=== PATIENT | male | born 1985 | race African-American/Black ===

== ENCOUNTER 2022-07-14 09:38 | Emergency (ER) | payer MEDICAID, OTHER ==
[~2022-07-14] VITALS: Ht 188 cm; Wt 97.3 kg
[2022-07-14] MEDS ORDERED: SODIUM CHLORIDE 0.9% 1,000 ML IV ONE (10:45)
[2022-07-14 11:04] LABS: CLARITY URINE CLOUDY (CLEAR); COLOR URINE DARK YELLOW (YELLOW); KETONES URINE 3+ (NEGATIVE); LEUKOCYTE ESTERASE URINE TRACE (NEGATIVE); NITRITE URINE NEGATIVE (NEGATIVE); OCCULT BLOOD URINE NEGATIVE (NEGATIVE); PH URINE 5.5 (4.5-8.0); PROTEIN URINE 2+ (NEGATIVE); SPECIFIC GRAVITY URINE 1.034 (1.005-1.030)
[2022-07-14 11:54] LABS: BASOPHILS % 0.5 % (0.0-2.0); EOSINOPHILS % 0.2 % (0.0-5.0); HEMATOCRIT. 40.2 % (42.0-52.0); HEMOGLOBIN. 13.3 g/dL (14.0-18.0); MEAN CORPUSCULAR HEMOGLOBIN 27.7 pg (28.0-32.0); MEAN CORPUSCULAR VOLUME 83.7 fL (80.0-94.0); MONOCYTES % 14.6 % (2.0-8.0); NEUTROPHILS % 65.7 % (40.0-76.0); PLATELET 338 x1000/uL (130-400); RED BLOOD CELL COUNT 4.81 mill/uL (4.7-6.1); RED CELL DISTRIBUTION WIDTH 12.2 % (11.6-14.6)
[2022-07-14 11:56] LABS: *AMPHETAMINES SCREEN URINE NEGATIVE (NEGATIVE); *BARBITURATES SCREEN URINE NEGATIVE (NEGATIVE); *BENZODIAZEPINES SCREEN URINE NEGATIVE (NEGATIVE); *COCAINE SCREEN URINE NEGATIVE (NEGATIVE); CANNABINOID URINE SCREEN PRESUMTIVE POSITIVE (NEGATIVE); METHADONE URINE SCREEN NEGATIVE (NEGATIVE); OPIATES URINE SCREEN NEGATIVE (NEGATIVE); PHENCYCLIDINE URINE SCREEN NEGATIVE (NEGATIVE)
[2022-07-14 12:04] LABS: CHLORIDE 101 mEq/L (98-107)
[2022-07-14 12:21] LABS: CREATINE KINASE 158 IU/L (39-308); ETHANOL BLOOD < 10 mg/dL
[2022-07-14] MEDS ORDERED: PROPRANOLOL HCL 10MG TABLET PO NR (12:45)
[2022-07-14] MEDS ORDERED: CEFTRIAXONE 1 G PREMIX 50 ML IV NR (12:45)
[2022-07-14] MEDS ORDERED: DEXAMETHASONE 4MG/ML 1ML VIAL IV NR (12:45)
[2022-07-14 17:57] VITALS: BP 143/80
== END 2022-07-14 18:55 | disposition short-term general hospital (02) ==
LOC: ER 10:00 → CANBEDREQ 14:18 → ER 18:55
DX: N39.0 Urinary tract infection, site not specified (principal); E05.90 Thyrotoxicosis, unspecified without thyrotoxic crisis or storm; Z20.822 Contact with and (suspected) exposure to COVID-19; R00.0 Tachycardia, unspecified; R63.4 Abnormal weight loss; Z68.27 Body mass index [BMI] 27.0-27.9, adult; R63.0 Anorexia; R19.7 Diarrhea, unspecified; F12.11 Cannabis abuse, in remission
CPT/HCPCS: 36415; 71045; 74176; 76770; 80053; 80305; 80320; 81003; 82550; 83036; 83605; 84145; 84443; 84481; 84484; 85025; 87040; 87086; 87426; 87804; 93005; 96361; 96365; 96366; 96375; 99291; C9803; J0696; J1100; J7030; Z7610; G0480